=== PATIENT | male | born 1980 | race Caucasian/White ===

== ENCOUNTER 2020-12-20 08:09 | Inpatient (IN) | payer BC ==
[2020-12-20] MEDS ORDERED: PANTOPRAZOLE 40 MG/10 ML VIAL IVP ONE (08:28)
--- NOTE | 2020-12-20 08:30 | ED ---
General Adult HPI - General Chief complaint: GI Bleed Stated complaint: GI Bleed Time Seen by Provider: 12/20/20 08:24 Source: patient, EMS Mode of arrival: EMS Limitations: no limitations - History of Present Illness Initial comments: Dictation was produced using gamigo dictation software. please excuse any grammatical, word or spelling errors. This patient was cared for during a federal and state declared state of emergency secondary to Covid 19 Chief Complaint: 40-year-old morbidly obese male presents to the emergency Department for GI bleed and hypotension History of Present Illness: 40-year-old male transferred from [facility] for increased level of care. He noticed he had 3 black stools starting at work yesterday around 6 PM. Patient states that he did have a few episodes of left-sided abdominal pain. States that his pain improved. Went to [facility] where he was evaluated. There was concerns of hypotension. He is given intravenous fluids. He had a positive stool occult blood. He was given Pepcid because they do not have Protonix at the hospital. Hemoglobin was stable. Patient had a white count of 20.7. Patient currently has no complaints. He states he feels rather well. Patient has history of hypertension and thyroid disease. He takes hydrochlorothiazide. His BUN and creatinine was 65.0 and 1.2 respectively. Hemoglobin was measured to be 10.1. The ROS documented in this emergency department record has been reviewed and confirmed by me. Those systems with pertinent positive or negative responses have been documented in the HPI. All other systems are other negative and/or noncontributory. PHYSICAL EXAM: General Impression: Alert and oriented x3, not in acute distress HEENT: Normocephalic atraumatic, extra-ocular movements intact, pupils equal and reactive to light bilaterally, mucous membranes moist. Cardiovascular: Tachycardic Chest: Able to complete full sentences, no retractions, no tachypnea Abdomen: abdomen soft, non-tender, non-distended, no organomegaly Musculoskeletal: Pulses present and equal in all extremities, no peripheral edema Motor: no focal deficits noted Neurological: CN II-XII grossly intact, no focal motor or sensory deficits noted Skin: Intact with no visualized rashes Psych: Normal affect and mood ED course: 40-year-old male transferred to emergency Department for ER transfer and [place] for GI bleed. Signs upon arrival are within acceptable limits. Transfer documentation was reviewed. Patient had positive stool occult blood. Patient is asymptomatic. Clinical presentation consistent with asymptomatic GI bleed. Patient is anemic at 10.1. Expect that he has acute GI bleed causing symptoms. Patient was given Protonix. He is evaluated at bedside physical examination is benign. Patient observed in the emergency department for approximately one hour in stable medical condition. He has not had any episodes of dark stools, hypertensive episodes or GI bleed he is continues to be asymptomatic. Patient be admitted to telemetry with GI consultation. Case is discussed with Dr. Grajeda. - Related Data Allergies Allergy/AdvReac Type Severity Reaction Status Date / Time No Known Allergies Allergy Verified 12/20/20 08:26 Review of Systems ROS Statement: Those systems with pertinent positive or pertinent negative responses have been documented in the HPI. ROS Other: All systems not noted in ROS Statement are negative. Past Medical History Past Medical History: Hypertension History of Any Multi-Drug Resistant Organisms: None Reported Additional Past Surgical History / Comment(s): kidney stone removal 2004 Past Psychological History: No Psychological Hx Reported Smoking Status: Unknown if ever smoked Past Alcohol Use History: Rare Past Drug Use History: None Reported General Exam Limitations: no limitations Course Vital Signs 12/20/20 08:12 Temperature 98.8 F Pulse Rate 111 H Respiratory 18 Rate Blood Pressure 109/65 O2 Sat by Pulse 98 Oximetry Disposition Clinical Impression: GI bleed Disposition: ADMITTED IP TO THIS HOSP Condition: Fair Referrals: Freddy Gallagher MD [Primary Care Provider] - 1-2 days Decision Time: 09:14
[2020-12-20] MEDS ORDERED: NALOXONE 0.4 MG/ML 1 ML VIAL IV PRN (09:11)
[2020-12-20 09:12] LABS: HCT 29.3 % (39.0-53.0); HGB 9.8 gm/dL (13.0-17.5); MCH 29.4 pg (25.0-35.0); MCHC 33.6 g/dL (31.0-37.0); MCV 87.6 fL (80.0-100.0); Mean Platelet Volume 7.3; Platelet Count 334 k/uL (150-450); RBC 3.34 m/uL (4.30-5.90); RDW 13.7 % (11.5-15.5); WBC 18.2 k/uL (3.8-10.6)
[2020-12-20 09:15] LABS: Prothrombin Time 11.1 sec (9.0-12.0)
[2020-12-20 09:16] LABS: ALT 19 U/L (4-49); AST 20 U/L (17-59); African American GFR (CKD) >90 (>60 ml/min/1.73 sqM); Albumin 3.3 g/dL (3.5-5.0); Alkaline Phosphatase 35 U/L (38-126); Anion Gap 7 mmol/L; Blood Urea Nitrogen 64 mg/dL (9-20); Calcium 8.5 mg/dL (8.4-10.2); Carbon Dioxide 24 mmol/L (22-30); Chloride 103 mmol/L (98-107); Glucose 122 mg/dL (74-99); Non-African American GFR(CKD) 84 (>60 ml/min/1.73 sqM); Potassium 4.5 mmol/L (3.5-5.1); Sodium 134 mmol/L (137-145); Total Bilirubin 0.5 mg/dL (0.2-1.3); Total Protein 5.7 g/dL (6.3-8.2)
--- NOTE | 2020-12-20 09:17 | XR ---
EXAMINATION TYPE: XR abdomen 1V DATE OF EXAM: 12/20/2020 9:11 AM CLINICAL HISTORY: Rectal bleeding. TECHNIQUE: 3 Upright KUB images of the abdomen are obtained. COMPARISON: None. FINDINGS: Slightly suboptimal secondary to patient's large body habitus. Scattered gas is seen in non -distended stomach and small bowel loops. Gas and fecal material is seen in non-distended colon. Ther e is no visceromegaly, pneumoperitoneum, or abnormal calcification appreciated. The lung bases are cl ear and the osseous structures are intact. IMPRESSION: Overall nonobstructive bowel gas pattern.
[2020-12-20] MEDS: SODIUM CHLORIDE 0.9% 1,000 ML IV SCH ×2 (09:27→16:34)
[2020-12-20 09:51] LABS: Band Neutrophils % 1 %; Eosinophils # (M) 0.18 k/uL (0-0.7); Lymphocytes # (M) 1.27 k/uL (1.0-4.8); Monocytes # (M) 0.91 k/uL (0-1.0); Myelocytes # (M) 0.18 k/uL (0); Myelocytes % 1 %; Neutrophils % (M) 87 %; Nucleated Red Blood Cells 0 /100 WBC (0-0); Total Cells Counted 200
[2020-12-20] MEDS: IOPAMIDOL CONTRAST (ORAL USE) VIAL PO PRN ×2 (11:18→12:03)
--- NOTE | 2020-12-20 13:29 | CT ---
EXAMINATION TYPE: CT abdomen pelvis w con DATE OF EXAM: 12/20/2020 COMPARISON: None. HISTORY: abdominal pain, black stools CT DLP: 2894.8 mGycm, Automated Exposure Control for Dose Reduction was Utilized. CONTRAST: CT scan of the abdomen and pelvis is performed with oral and with IV Contrast, patient injected with 100 mL of Isovue 300. FINDINGS: Slightly suboptimal as delayed phase imaging not performed and slightly suboptimal due to p atient's large body habitus causing some artifact. LUNG BASES: Elevated right hemidiaphragm. LIVER/GB: No significant abnormality is appreciated. PANCREAS: No significant abnormality is seen. SPLEEN: No significant abnormality is seen. ADRENALS: No significant abnormality is seen. KIDNEYS: No significant abnormality is seen. BOWEL: Contrast reaches level of rectum. Stomach not greatly distended and suboptimally evaluated as majority of contrast has passed. No suspicious small or large bowel dilatation. Normal-appearing cont rast-filled appendix from cecum in the right mid abdomen. Slightly redundant sigmoid colon. Mild to m oderate wall thickening in the rectum. PROSTATE/SEMINAL VESICLES: Normal-sized prostate. Scattered glandular calcifications. Adjacent scatte red pelvic phleboliths LYMPH NODES: No greater than 1cm abdominal or pelvic lymph nodes are appreciated. OSSEOUS STRUCTURES: No significant abnormality is seen. OTHER: Small fat-containing left inguinal hernia. IMPRESSION: Mild to moderate wall thickening in the rectum consistent with uncomplicated acute coliti s. Differential includes infectious and/or inflammatory etiologies. No bowel obstruction.
[2020-12-20 14:17] LABS: HCT 28.5 % (39.0-53.0); HGB 9.6 gm/dL (13.0-17.5); MCH 29.3 pg (25.0-35.0); MCHC 33.6 g/dL (31.0-37.0); MCV 87.3 fL (80.0-100.0); Mean Platelet Volume 7.2; Platelet Count 323 k/uL (150-450); RBC 3.27 m/uL (4.30-5.90); RDW 13.6 % (11.5-15.5); WBC 16.6 k/uL (3.8-10.6)
--- NOTE | 2020-12-20 16:30 | CONS ---
CONSULTATION DATE OF DICTATION: 12/20/2020 REASON FOR CONSULTATION: Anemia and black tarry stools. HISTORY OF PRESENT ILLNESS: The patient is a 40-year-old pleasant white male who was transferred from [facility] when he presented with black tarry stools that started yesterday. He had 4 episodes yesterday and became somewhat dizzy. His initial hemoglobin was 11.2. He was subsequently transferred to [facility], and repeat hemoglobin here was 9.5 g/dL. He usually takes occasional Motrin 1 or 2 tablets every week. He denies any prior history of peptic ulcer disease. He reports no abdominal pain. No nausea, no vomiting. No fever, chills or night sweats. PAST MEDICAL HISTORY: Significant for hypertension. MEDICATIONS: Medications at home include lisinopril, hydrochlorothiazide and Zaroxolyn. ALLERGIES: NONE. PAST SURGICAL HISTORY: Removal of kidney stones in 2004. SOCIAL HISTORY: No smoking. No alcohol use. FAMILY HISTORY: Unremarkable. REVIEW OF SYSTEMS: CARDIOPULMONARY: No chest pain or shortness of breath. GENITOURINARY: No dysuria or hematuria. MUSCULOSKELETAL: Unremarkable. SKIN: Unremarkable. ENDOCRINE: Unremarkable. PSYCHIATRIC: Unremarkable. NEUROLOGY: Unremarkable. ENT/VISION: Unremarkable. CONSTITUTIONAL: No recent weight loss. No fever, chills, night sweats. PHYSICAL EXAMINATION: He appears comfortable. Blood pressure 143/65, pulse rate 118, temperature 97.5. HEENT examination unremarkable. Conjunctivae pink. Sclerae anicteric. Oral cavity no lesions. NECK: No JVD or lymph node enlargement. CHEST: Clear to auscultation. HEART: Regular rate and rhythm. ABDOMEN: Soft. Non-tender, non-distended. Bowel sounds are positive. No organomegaly. EXTREMITIES: No pedal edema. SKIN: No rashes. NEUROLOGIC: Alert and oriented x3. No focal deficits. LABS: WBC 18.2, hemoglobin 9.8, platelets normal. INR is normal. BUN 64, creatinine 1.08. Today hemoglobin is 9.6 g/dL. IMPRESSION: 1. Black tarry stools for the last 2 days' duration with a drop in hemoglobin from 11 to 9.6 g/dL, all indicative of an upper acute upper GI bleed. He had a CT of the abdomen and pelvis done that did show some thickening of the cecum suspicious for nonspecific acute colitis. The patient denies any diarrhea or rectal bleeding. Most likely we are dealing with peptic ulcer disease, given the recent NSAID use. 2. History of hypertension. RECOMMENDATIONS: 1. Continue Protonix 40 mg twice daily. 2. Monitor CBC every 6 hours. 3. Clear liquid diet. 4. N.p.o. after midnight and schedule him for an upper endoscopy tomorrow. I discussed with the patient risks, benefits and complications, and he is agreeable to it. Thank you for this consultation. BRANDYN / FRANNY: [id number] /
[2020-12-20] MEDS: PANTOPRAZOLE 40 MG/10 ML VIAL IV SCH (20:34)
[2020-12-21] MEDS: SODIUM CHLORIDE 0.9% 1,000 ML IV SCH ×4 (01:13→21:59)
[2020-12-21 01:33] LABS: HCT 25.1 % (39.0-53.0); HGB 8.3 gm/dL (13.0-17.5); MCH 29.2 pg (25.0-35.0); MCHC 33.2 g/dL (31.0-37.0); Mean Platelet Volume 7.4; Platelet Count 282 k/uL (150-450); RBC 2.85 m/uL (4.30-5.90); RDW 13.9 % (11.5-15.5); WBC 11.8 k/uL (3.8-10.6)
[2020-12-21] MEDS: LEVOTHYROXINE 50 MCG TAB PO SCH (05:51)
[2020-12-21] MEDS: lisinopriL 20 MG TAB PO SCH (05:51)
[2020-12-21] MEDS ORDERED: PANTOPRAZOLE 40 MG/10 ML VIAL IV SCH (09:00)
[2020-12-21] MEDS: PANTOPRAZOLE 40 MG/10 ML VIAL IV SCH ×2 (09:14→21:59)
[2020-12-21 10:11] LABS: Basophils # (A) 0.07 X 10*3/uL (0.00-0.10); Basophils % (A) 0.6 %; Eosinophils # (A) 0.11 X 10*3/uL (0.04-0.35); Eosinophils % (A) 0.9 %; HCT 23.8 % (39.6-50.0); HGB 7.7 g/dL (13.0-17.0); Lymphocytes # (A) 2.14 X 10*3/uL (0.90-5.00); Lymphocytes % (A) 18.5 %; MCH 29.4 pg (27.0-32.0); MCHC 32.4 g/dL (32.0-37.0); MCV 90.8 fL (80.0-97.0); Mean Platelet Volume 9.9 fL (9.5-12.2); Monocytes # (A) 0.84 X 10*3/uL (0.20-1.00); Monocytes % (A) 7.3 %; Neutrophils # (A) 8.09 X 10*3/uL (1.80-7.70); Neutrophils % (A) 69.9 %; Platelet Count 259 X 10*3/uL (140-440); RBC 2.62 X 10*6/uL (4.40-5.60); RDW 14.1 % (11.5-14.5); WBC 11.58 X 10*3/uL (4.50-10.00)
[2020-12-21 10:46] LABS: African American GFR (CKD) 127.7 (60.0-200.0); Anion Gap 7.3 mmol/L (4.00-12.00); Calcium 8.3 mg/dL (8.7-10.3); Carbon Dioxide 25.7 mmol/L (21.6-31.8); Non-African American GFR(CKD) 110.2 (60.0-200.0); Potassium 3.9 mmol/L (3.5-5.5)
[2020-12-21] MEDS ORDERED: IV FLUID CONTINUATION 1,000 ML IV ONE (15:01)
[2020-12-21] MEDS ORDERED: PROPOFOL 10 MG/ML 20 ML VIAL IV ONE (15:02)
[2020-12-21] MEDS ORDERED: ONDANSETRON 4 MG/2 ML VIAL ONE (15:02)
[2020-12-21] MEDS ORDERED: LIDOCAINE 1% INJ 10MG/ML (20 ML MDV) ONE (15:02)
--- NOTE | 2020-12-21 15:12 | P.PCN ---
Date of Procedure: 12/21/20 Procedure(s) Performed: BRIEF HISTORY: Patient is a 40-year-old, pleasant, white . male scheduled for an upper endoscopy to evaluate for acute upper GI bleed. He was admitted hospital yesterday with hemoglobin of 9.2 g/dL and black tarry stools for the last 2 days' duration. PROCEDURE PERFORMED: Esophagogastroduodenoscopy with biopsy . PREOPERATIVE DIAGNOSIS: Melena of 2 days' duration/anemia IV sedation per anesthesia. PROCEDURE: After informed consent was obtained, the patient was brought into the endoscopy unit. IV sedation was administered by Anesthesia under continuous monitoring. Initially the Olympus GIF-140 video endoscope was inserted into the mouth. Esophagus intubated without any difficulty. It was gradually advanced into the stomach and duodenum and carefully examined. The second part of the duodenum appeared normal. the duodenal bulb there was a 5 mm and 1 cm clean- based ulcers with no active bleeding. The scope at this time was withdrawn to the stomach, adequately insufflated with air, and upon careful examination, mucosa of the antrum had gastritis and biopsies were done from this area. The , body, cardia and the fundus appeared normal. The scope was then withdrawn into the esophagus. The GE junction was located at 39 cm from the incisors. The esophagus appeared normal. There were no erosions or ulcerations seen and the patient tolerated the procedure well. IMPRESSION: 1. 5 mm and 1 cm clean-based duodenal bulbar ulcer just distal to the pylorus with no active bleeding. 2. Mild antral gastritis. RECOMMENDATIONS: The findings of this examination were discussed with the patient . He'll be continued on Protonix 40 mg twice daily. Avoid NSAIDs. Adv ance diet as tolerated. If hemoglobin remains stable he can be discharged home tomorrow..
--- NOTE | 2020-12-21 23:00 | P.HPIM ---
History of Present Illness H&P Date: 12/21/20 Chief Complaint: Dark stools History of presenting complaint: This is a pleasant 40-year-old patient of Dr. Morgan. Chronic stable medical conditions include hypertension, hypothyroid. 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 For 2 days he noticed dark stools. Initially presented to [facility] where he was transferred here. At that colonoscopy was positive for occult blood in the stool. No prior history of GI bleed. No abdominal pain. No nausea vomiting. No fever no chills. GI was consulted. Review of systems: GEN.: A bit tired EYES: None HEENT: None NECK: None RESPIRATORY: None CARDIOVASCULAR: None GASTROINTESTINAL: As above GENITOURINARY: None MUSCULOSKELETAL: Occasional pain in the feet LYMPHATICS: None HEMATOLOGICAL: None PSYCHIATRY: None NEUROLOGICAL: None Past medical history to include: Hypertension, hypothyroid, kidney stones removed in 2004 Social history: Visit this patient is. 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 Denies any history of smoking alcohol or recreational drugs. Family history: Reviewed, noncontributory to presentation Physical examination: VITAL SIGNS: 98.4, 110, 16, 138/80, 96% on room air GENERAL: BMI 54.5, sitting up, not in distress. EYES: Pupils equal. Conjunctiva normal. HEENT: External appearance of nose and ears normal, oral cavity grossly normal. NECK: JVD not raised; masses not palpable. HEART: First and second heart sounds are normal; no edema. LUNGS: Respiratory rate normal; clear to auscultation. ABDOMEN: Soft, nontender, liver spleen not palpable, no masses palpable. PSYCH: Alert and oriented x3; mood and affect normal. NEUROLOGICAL: Cranial nerves grossly intact; no facial asymmetry, power and sensation grossly intact. LYMPHATICS: No lymph nodes palpable in the axilla and neck INVESTIGATIONS, reviewed in the clinical context: December 21: Hemoglobin 7.7 White count 18.2 hemoglobin 9.8 sodium 134 potassium 4.5 crit 1.08 Coronavirus [PCR]-not detected Assessment and plan -This is a patient who presents with 2 days of dark stools. Does take ibuprofen was about once or twice a week. Suspect this to be an upper GI bleed. Add PPI. GI was consulted. Pending endoscopy. -Acute GI blood loss anemia. Follow H&H. Hemoglobin is down to 7.7. -Morbid obesity BMI 54.5 -Essential hypertension-keep a close eye blood pressure. Continue lisinopril. -Hypothyroid. Continue Synthroid -GI was consulted. Pending endoscopy. Follow H&H. Hold off hydrochlorothiazide. IV fluids. Past Medical History Past Medical History: Hypertension History of Any Multi-Drug Resistant Organisms: None Reported Additional Past Surgical History / Comment(s): kidney stone removal 2004 Past Anesthesia/Blood Transfusion Reactions: No Reported Reaction Past Psychological History: No Psychological Hx Reported Smoking Status: Never smoker, Unknown if ever smoked Past Alcohol Use History: Rare Past Drug Use History: None Reported Medications and Allergies Home Medications Medication Instructions Recorded Confirmed Type Levothyroxine Sodium [Synthroid] 50 mcg PO DAILY@1400 12/20/20 12/20/20 History hydroCHLOROthiazide [Hydrodiuril] 50 mg PO DAILY@1400 12/20/20 12/20/20 History lisinopriL 20 mg PO DAILY@1400 12/20/20 12/20/20 History Allergies Allergy/AdvReac Type Severity Reaction Status Date / Time No Known Allergies Allergy Verified 12/20/20 09:43 Physical Exam Vitals: Vital Signs Temp Pulse Pulse Resp BP BP Pulse Ox 12/21/20 07:20 98.4 F 111 H 16 138/80 96 12/21/20 05:44 98.1 F 110 H 18 138/77 97 12/21/20 01:55 98 F 110 H 20 129/78 97 12/20/20 20:00 98.1 F 110 H 20 132/79 96 12/20/20 14:00 97.8 F 118 H 16 143/65 95 12/20/20 10:28 99.8 F H 108 H 18 131/65 95 12/20/20 09:52 105 H 18 109/66 98 12/20/20 09:27 115 H 18 106/62 98 Intake and Output 12/20/20 12/21/20 12/21/20 22:59 06:59 14:59 Intake Total 2079 Balance 2079 Intake: Intake, IV Titration 1120 Amount Sodium Chloride 0.9% 1, 1120 000 ml @ 140 mls/hr IV . Q7H9M [facility] Rx#:[id number] Oral 960 Other: Voiding Method Toilet # Voids 2 # Bowel Movements 6 Results CBC & Chem 7: 12/21/20 06:35 12/21/20 06:35 Labs: Abnormal Lab Results - Last 24 Hours (Table) 12/20/20 12/20/20 12/21/20 Range/Units 08:30 13:52 00:50 WBC 16.6 H 11.8 H (3.8-10.6) k/uL RBC 3.27 L 2.85 L (4.30-5.90) m/uL Hgb 9.6 L 8.3 L (13.0-17.5) gm/dL Hct 28.5 L 25.1 L (39.0-53.0) % Neutrophils # (Manual) 16.00 H (1.3-7.7) k/uL Myelocytes # (Manual) 0.18 H (0) k/uL Thrombosis Risk Factor Assmnt - Choose All That Apply Each Factor Represents 1 point: Age 41-60 years, Obesity (BMI >25) Other Risk Factors: No Other congenital or acquired thrombophilia - If yes, enter type in comment: No Thrombosis Risk Factor Assessment Total Risk Factor Score: 2 Thrombosis Risk Factor Assessment Level: Low Risk
[2020-12-22] MEDS: SODIUM CHLORIDE 0.9% 1,000 ML IV SCH ×2 (03:48→12:50)
[2020-12-22] MEDS: LEVOTHYROXINE 50 MCG TAB PO SCH (06:26)
[2020-12-22] MEDS: lisinopriL 20 MG TAB PO SCH (06:26)
[2020-12-22] MEDS: PANTOPRAZOLE 40 MG/10 ML VIAL IV SCH (07:41)
[2020-12-22 11:45] LABS: Basophils # (A) 0.06 X 10*3/uL (0.00-0.10); Basophils % (A) 0.5 %; Eosinophils % (A) 1.7 %; HCT 22.6 % (39.6-50.0); HGB 7.4 g/dL (13.0-17.0); Lymphocytes # (A) 2.02 X 10*3/uL (0.90-5.00); Lymphocytes % (A) 17.2 %; MCH 29.5 pg (27.0-32.0); MCHC 32.7 g/dL (32.0-37.0); Mean Platelet Volume 10.1 fL (9.5-12.2); Monocytes # (A) 0.89 X 10*3/uL (0.20-1.00); Monocytes % (A) 7.6 %; Neutrophils # (A) 8.27 X 10*3/uL (1.80-7.70); Neutrophils % (A) 70.5 %; Platelet Count 249 X 10*3/uL (140-440); RBC 2.51 X 10*6/uL (4.40-5.60); RDW 13.9 % (11.5-14.5); WBC 11.73 X 10*3/uL (4.50-10.00)
[2020-12-22 13:24] VITALS: BP 138/72; PULSE 87; RESP 18; TEMP 98.9
--- NOTE | 2020-12-22 23:33 | P.DS ---
Providers Date of admission: 12/21/20 11:53 Expected date of discharge: 12/22/20 Attending physician: Yogi Grajeda Consults: 12/20/20 08:35 Consult Physician Routine Consulting Provider: Jessika Johnson Consult Reason/Comments: GI bleed Do you want consulting provider notified?: Yes Primary care physician: [facility] Hospital Course: Chief Complaint: Dark stools History of presenting complaint: This is a pleasant 40-year-old patient of Dr. Gallagher. Chronic stable medical conditions include hypertension, hypothyroid. 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 For 2 days he noticed dark stools. Initially presented to Dr. paul where he was transferred here. At that colonoscopy was positive for occult blood in the stool. No prior history of GI bleed. No abdominal pain. No nausea vomiting. No fever no chills. GI was consulted. EGD-5 mm and 1 cm clean based duodenal bulb ulcer just distal to the pylorus with no active bleeding. Mild antral gastritis. Today-laying in bed. No abdominal pain. No further GI bleed. Hemoglobin 7.4. No dizziness nor lightheadedness. Discussed with GI. Okay to DC. Discussed with the patient. Told not to take NSAIDs Consultation: Dr. Elidia Johnson and partners from GI Past medical history to include: Hypertension, hypothyroid, kidney stones removed in 2004 Social history: Visit this patient is. 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 Denies any history of smoking alcohol or recreational drugs. Family history: Reviewed, noncontributory to presentation Physical examination: VITAL SIGNS: 98.9, 87, 16, 138/72, 95% room air GENERAL: BMI 54.5, sitting up, not in distress. EYES: Pupils equal. Conjunctiva normal. NECK: JVD not raised; masses not palpable. HEART: First and second heart sounds are normal; no edema. LUNGS: Respiratory rate normal; clear to auscultation. ABDOMEN: Soft, nontender, liver spleen not palpable, no masses palpable. PSYCH: Alert and oriented x3; mood and affect normal. INVESTIGATIONS, reviewed in the clinical context: Family 6: Hemoglobin 7.4 December 21: Hemoglobin 7.7 White count 18.2 hemoglobin 9.8 sodium 134 potassium 4.5 crit 1.08 Coronavirus [PCR]-not detected Assessment and plan -Acute GI bleed from bulb ulcer from use of NSAIDs -Acute GI blood loss anemia. Hemoglobin 7.4 -Morbid obesity BMI 54.5 -Essential hypertension- Continue lisinopril. -Hypothyroid. Continue Synthroid Disposition: Home Labs: CBC-3 days Patient Condition at Discharge: Fair Plan - Discharge Summary Discharge Rx Participant: No New Discharge Prescriptions: New Omeprazole [PriLOSEC] 20 mg PO AC-BID #60 cap Continue lisinopriL 20 mg PO DAILY@1400 Levothyroxine Sodium [Synthroid] 50 mcg PO DAILY@1400 hydroCHLOROthiazide [Hydrodiuril] 50 mg PO DAILY@1400 Discharge Medication List Levothyroxine Sodium [Synthroid] 50 mcg PO DAILY@1400 12/20/20 [History] hydroCHLOROthiazide [Hydrodiuril] 50 mg PO DAILY@1400 12/20/20 [History] lisinopriL 20 mg PO DAILY@1400 12/20/20 [History] Omeprazole [PriLOSEC] 20 mg PO AC-BID #60 cap 12/22/20 [Rx] Follow up Appointment(s)/Referral(s): Freddy Gallagher MD [Primary Care Provider] - 1 Week (The office was closed at the time of your discharge. Please call the office on 12/24/2020 to schedule your follow-up appointment. ) Jessika Johnson MD [STAFF PHYSICIAN] - 2 Weeks (The office was closed at the time of your discharge. Please call the office on 12/24/2020 to schedule your follow-up appointment.) Activity/Diet/Wound Care/Special Instructions: CBC - 3 days NO NSAIDS Discharge/Stand Alone Forms: Work/Release Restrictions Form Discharge Disposition: HOME SELF-CARE
== END 2020-12-22 16:19 | disposition home or self-care (01) | DRG 378 ==
LOC: EC 08:09 → 6NMEDSUR 09:28 → OBSVTOIN 12-21 11:53 → 5NMEDONC 12-21 22:44
PROVIDERS: ADMIT Hospitalist; ATTEND Hospitalist
PROC: 0DB78ZX Excision of Stomach, Pylorus, Via Natural or Artificial Opening Endoscopic, Diagnostic (ICD-10-PCS; principal; 2020-12-21 09:20)
DX: K26.4 Chronic or unspecified duodenal ulcer with hemorrhage (principal); D62 Acute posthemorrhagic anemia; Z68.43 Body mass index [BMI] 50.0-59.9, adult; E03.9 Hypothyroidism, unspecified; E66.01 Morbid (severe) obesity due to excess calories; I10 Essential (primary) hypertension; Z20.822 Contact with and (suspected) exposure to COVID-19; K29.70 Gastritis, unspecified, without bleeding; Z79.890 Hormone replacement therapy; Z79.899 Other long term (current) drug therapy; Z87.442 Personal history of urinary calculi
CPT/HCPCS: 36415; 43239; 74018; 74177; 80048; 80053; 85025; 85027; 85610; 85730; 86850; 86900; 86901; 87635; 96374; 99285